=== PATIENT | female | born 1985 | race Caucasian/White ===

== ENCOUNTER → 2016-12-07 | Outpatient (CLI) | payer OTHER | LOC: CLAB 14:35 | DX: Z31.49 Encounter for other procreative investigation and testing (principal); Z11.59 Encounter for screening for other viral diseases | CPT/HCPCS: 86901 ==

== ENCOUNTER 2017-11-02 20:54 | Emergency (ER) | payer OTHER ==
[~2017-11-02] VITALS: Ht 165.1 cm; Wt 61.0 kg
[2017-11-02 20:58] VITALS: BP 112/63; PULSE 71; RESP 18; TEMP 97.6; O2SAT 100
--- NOTE | 2017-11-02 21:27 | PD ---
HPI Chief Complaint: Dizziness Time Seen by Provider: 21:06 Travel History International Travel<30 days: No Contact w/Intl Traveler<30days: No Traveled to known affect area: No History of Present Illness HPI Patient is currently breast-feeding her 3-month-old . Reports that she sat down on the couch this evening and felt the room spinning and started vomiting. Also reports one loose stool since then. She denies rhinorrhea, chest pain, shortness of breath, tinnitus, ear pain, headache, neck pain, photophobia, abdominal pain, fever but reports chills. States whenever she moves or walks the vertigo worsens. PFSH Past Medical History ?: Not Social History Tobacco Use: No Allergies-Medications (Allergen,Severity, Reaction): Coded Allergies: No Known Allergies (Unverified , 11/02/17) Reported Meds & Prescriptions Reported Meds & Active Scripts Active Meclizine (Meclizine HCl) 25 Mg Tab 25 Mg PO QID PRN 5 Days Review of Systems Except as stated in HPI: all other systems reviewed are Neg Physical Exam Narrative GENERAL: No acute distress SKIN: Focused skin assessment warm/dry. HEAD: Atraumatic. Normocephalic. EYES: Pupils equal and round. Extraocular muscles intact bilaterally no scleral icterus. No injection or drainage. ENT: No nasal bleeding or discharge. Mucous membranes pink and moist. NECK: Trachea midline. No JVD. CARDIOVASCULAR: Regular rate and rhythm. No murmur appreciated. RESPIRATORY: No accessory muscle use. Clear to auscultation. Breath sounds equal bilaterally. GASTROINTESTINAL: Abdomen soft, non-tender, nondistended. Hepatic and splenic margins not palpable. MUSCULOSKELETAL: No obvious deformities. No clubbing. No cyanosis. No edema. NEUROLOGICAL: Awake and alert. No obvious cranial nerve deficits. Motor grossly within normal limits. Normal speech. PSYCHIATRIC: Appropriate mood and affect; insight and judgment normal. Data Data Last Documented VS Vital Signs Date Time Temp Pulse Resp B/P (MAP) Pulse Ox O2 Delivery O2 Flow Rate FiO2 11/02/17 22:06 71 18 113/65 (81) 88 22 119/80 (93) 11/02/17 21:25 100 Room Air 11/02/17 20:58 97.6 Orders Orders Complete Blood Count With Diff (11/02/17 21:19) Comprehensive Metabolic Panel (11/02/17 21:19) Urinalysis - C+S If Indicated (11/02/17 21:19) Iv Access Insert/Monitor (11/02/17 21:19) Ecg Monitoring (11/02/17 21:19) Orthostatic Vital Signs (11/02/17 21:19) Ed Urine Pregnancytest Poc (11/02/17 21:19) Sodium Chlor 0.9% 1000 Ml Inj (Ns 1000 M (11/02/17 21:30) Meclizine (Antivert) (11/02/17 22:15) I-Stat Profile (11/02/17 22:10) Potassium Chloride (Kcl) (11/02/17 23:00) Prochlorperazine Inj (Compazine Inj) (11/02/17 23:15) Labs Laboratory Tests Test 11/02/17 22:10 11/03/17 00:10 White Blood Count 9.0 TH/MM3 Red Blood Count 4.45 MIL/MM3 Hemoglobin 10.3 GM/DL Bedside Hemoglobin G/DL Hematocrit 31.7 % Bedside Hematocrit % Mean Corpuscular Volume 71.2 FL Mean Corpuscular Hemoglobin 23.2 PG Mean Corpuscular Hemoglobin Concent 32.6 % Red Cell Distribution Width 20.8 % Platelet Count 327 TH/MM3 Mean Platelet Volume 8.1 FL Neutrophils (%) (Auto) 72.3 % Lymphocytes (%) (Auto) 17.7 % Monocytes (%) (Auto) 6.0 % Eosinophils (%) (Auto) 3.4 % Basophils (%) (Auto) 0.6 % Neutrophils # (Auto) 6.5 TH/MM3 Lymphocytes # (Auto) 1.6 TH/MM3 Monocytes # (Auto) 0.5 TH/MM3 Eosinophils # (Auto) 0.3 TH/MM3 Basophils # (Auto) 0.1 TH/MM3 CBC Comment AUTO DIFF Differential Comment AUTO DIFF CONFIRMED Ovalocytes 1+ Bedside Sodium 140 MMOL/L Blood Urea Nitrogen 27 MG/DL Creatinine 0.68 MG/DL Random Glucose 79 MG/DL Total Protein 7.4 GM/DL Albumin 4.0 GM/DL Calcium Level 9.3 MG/DL Alkaline Phosphatase 93 U/L Aspartate Amino Transf (AST/SGOT) 15 U/L Alanine Aminotransferase (ALT/SGPT) 20 U/L Total Bilirubin 0.2 MG/DL Sodium Level 141 MEQ/L Potassium Level 3.6 MEQ/L Chloride Level 104 MEQ/L Carbon Dioxide Level 22.9 MEQ/L Bedside Potassium 3.5 MMOL/L Bedside Chloride 103 MMOL/L Anion Gap 14 MEQ/L Bedside Blood Urea Nitrogen 27 MG/DL Bedside Creatinine 0.6 MG/DL Estimat Glomerular Filtration Rate 102 ML/MIN Bedside Glucose 81 MG/DL Urine Color YELLOW Urine Turbidity CLEAR Urine pH 6.[address] [place] 1.020 Urine Protein NEG mg/dL Urine Glucose (UA) NEG mg/dL Urine Ketones 40 mg/dL Urine Occult Blood NEG Urine Nitrite NEG Urine Bilirubin NEG Urine Urobilinogen 0.2 MG/DL Urine Leukocyte Esterase NEG Urine RBC 0-3 /hpf Urine WBC 0-2 /hpf Urine Squamous Epithelial Cells 0-5 /hpf Microscopic Urinalysis Comment CULT NOT INDICATED MDM Medical Decision Making Medical Screen Exam Complete: Yes Emergency Medical Condition: Yes Interpretation(s) Labs: Urine negative, decreased potassium and hemoglobin and hematocrit, Differential Diagnosis BPPV, vertigo, orthostasis, Narrative Course Patient presents to the ER complaining of acute vertigo. IV access obtained and patient placed on personnel monitor. Will check orthostatics, labs, give IV fluids. As patient is breast-feeding averaged out to the pharmacistRajat, determine if meclizine is safe in breast-feeding patients. 10:54-> potassium slightly decreased. Patient given 20 mEq. She is also been given 10 mg IV Compazine. 12:11-> patient was ambulatory in the emergency department. States that she does feel better. Patient had concern about breast-feeding and taking the medication. Spoke to the pharmacist who advised that he could be transmitted through the breast thought that it was okay to give him . Also spoke to the OB hospitalist, also advised that most of the mass to treat vertigo could be transmitted through breast milk. Digested that I reach out to the bag repairer to find out the effects on child. Spoke to ER bag repairer Dr. Mitchell, who advised that it would be fine. Patient has been advised that the medication can be transmitted to the breast milk with his increased fussiness and drowsiness with infant. Diagnosis Primary Impression: Vertigo Patient Instructions: Benign Paroxysmal Positional Vertigo (ED), General Instructions Additional Instructions: 1. Follow-up with primary care doctor in 48-72 hours. 2. Meds as directed. 3. Return to the ER for fever, vomiting, chest pain, shortness of breath, numbness, tingling, severe headache, or for any new/worrisome/worsening symptoms. Scripts Meclizine (Meclizine) 25 Mg Tab 25 MG PO QID Y for VERTIGO for 5 Days, #20 TAB 0 Refills Prov: Rocio Wright MD 11/03/17 Disposition: 01 DISCHARGE HOME Condition: Stable Rocio Wright MD Nov 02, 2017 21:27
[2017-11-02] MEDS ORDERED: SODIUM CHLOR 0.9% 1000 ML INJ 1,000 ML IV ONE (21:30)
[2017-11-02 22:06] VITALS: BP_SYST 113; BP_SYST 119; BP_DIAS 65; BP_DIAS 80; RESP 18; RESP 22
[2017-11-02] MEDS ORDERED: MECLIZINE HCL 25 MG TAB PO ONE (22:15)
[2017-11-02 22:48] LABS: AUTOMATED NEUTROPHIL # 6.5 TH/MM3 (1.8-7.7); BASOPHIL # 0.1 TH/MM3 (0-0.2); BASOPHIL % 0.6 % (0.0-2.0); EOSINOPHIL # 0.3 TH/MM3 (0-0.4); EOSINOPHIL % 3.4 % (0.0-4.0); HEMATOCRIT 31.7 % (35.0-46.0); HEMOGLOBIN 10.3 GM/DL (11.6-15.3); LYMPH % 17.7 % (9.0-44.0); LYMPHOCYTE # 1.6 TH/MM3 (1.0-4.8); MEAN CELL VOLUME 71.2 FL (80.0-100.0); MEAN CORPUSCULAR HEMOGLOBIN 23.2 PG (27.0-34.0); MEAN CORPUSCULAR HGB CONC 32.6 % (32.0-36.0); MEAN PLATELET VOLUME 8.1 FL (7.0-11.0); MONOCYTE # 0.5 TH/MM3 (0-0.9); NEUT % 72.3 % (16.0-70.0); PLATELET COUNT 327 TH/MM3 (150-450); RED BLOOD COUNT 4.45 MIL/MM3 (4.00-5.30); RED CELL DISTRIBUTION WIDTH 20.8 % (11.6-17.2)
[2017-11-02] MEDS ORDERED: POTASSIUM CHLORIDE 20 MEQ CONTROLLED RELEASE TAB PO ONE (23:00)
[2017-11-02] MEDS ORDERED: PROCHLORPERAZINE INJ 10 MG/2 ML VIAL IV PUSH ONE (23:15)
[2017-11-02 23:39] LABS: OVALOCYTES 1+ (NORMAL)
[2017-11-02 23:57] LABS: AST (GOT) 15 U/L (15-37); BICARBONATE 22.9 MEQ/L (21.0-32.0); BLOOD UREA NITROGEN 27 MG/DL (7-18); CALCIUM 9.3 MG/DL (8.5-10.1); CHLORIDE 104 MEQ/L (98-107); CREATININE 0.68 MG/DL (0.50-1.00); GLOMERULAR FILTRATION RATE 102 ML/MIN (>89); GLUCOSE,RANDOM 79 MG/DL (74-106); SODIUM (NA) 141 MEQ/L (136-145)
[2017-11-03] LABS: ALKALINE PHOSPHATASE 93 U/L (45-117); ALT (GPT) 20 U/L (10-53); TOTAL BILIRUBIN ADULT 0.2 MG/DL (0.2-1.0); TOTAL PROTEIN 7.4 GM/DL (6.4-8.2)
[2017-11-03] MEDS ORDERED: MECL-62 PO (00:14)
[2017-11-03 00:28] LABS: BILIRUBIN, URINE NEG (NEG); BLOOD, URINE NEG (NEG); GLUCOSE,URINE NEG (NEG); KETONE, URINE 40 mg/dL (NEG); NITRITE,URINE NEG (NEG); URINE COLOR YELLOW (YELLW/STRAW); URINE LEUKOCYTE ESTERASE NEG (NEG)
[2017-11-03 00:37] LABS: RBC, URINE 0-3 /hpf (0-3); SQUAMOUS EPITHELIAL CELL URINE 0-5 /hpf (0-5); WBC, URINE 0-2 /hpf (0-5)
[2017-11-03 00:48] VITALS: BP 127/62
== END 2017-11-03 00:51 | disposition home or self-care (01) ==
LOC: PHED 20:54
DX: R42 Dizziness and giddiness (principal)
CPT/HCPCS: 80053; 81001; 84703; 85025; 96361; 96374; 99284; J0780; J7030; 80048